=== PATIENT | male | born 1955 | race Caucasian/White ===

== ENCOUNTER 2021-07-09 13:48 | Outpatient (CLI) | payer MEDICARE, SELFPAY ==
--- NOTE | 2021-07-09 | CT_ITS ---
WS: [id number] CTA THORACIC TECHNIQUE: Contrast enhanced CTA of the thoracic aorta with coronal and sagittal reformatted images a nd maximum intensity projection (MIP) images. CLINICAL INFORMATION: AORTIC STENOSIS COMPARISON: None. DLP: 1167.[address] scans at [facility] use at least one of these dose optimization techniques: automated e xposure control; mA and/or kV adjustment per patient size (includes targeted exams where dose is matc hed to clinical indication); or iterative reconstruction. FINDINGS:Heterogeneously enhancing mass likely arising from the adrenal gland measuring 3.9 x 3.2 x 4 .0 CM. Additional lobulated mesenteric soft tissue nodules adjacent to this mass superior to the left kidney in a subdiaphragmatic location measuring 1.4 x 1.9 x 4.1 cm. Findings are nonspecific but arsenio picious for metastatic disease. Normal caliber thoracic aorta. Ascending thoracic aorta measures 3.1 cm in maximum dimension. Normal descending thoracic aorta. Normal aortic arch. Upper abdominal aorta appears normal. No mediastinal or hilar lymphadenopathy. No axillary lymphadenopathy. Moderate to advanced chronic em physematous changes. No acute pulmonary infiltrates. No focal pneumonia or pleural fluid. A few calci fied granulomas. Small noncalcified nodule right upper lobe measuring 6 mm. Subpleural nodule right l ower lobe measuring 6 mm. 3 mm subpleural nodule left lower lobe. Normal right adrenal gland. CT/CT angio chest [id number] IMPRESSION: 1. Normal caliber thoracic aorta. 2. Moderate to advanced chronic emphysematous changes. No acute pulmonary infi ltrates. 3. Noncalcified nodule right upper lobe measuring 6 mm. 4. Heterogeneously enhancing soft tissue mass in the area of the left adrenal gland measuring 3.9 x 3.2 x 4.0 CM. Additional adjacent mesenteric nodularity s uperior to the left kidney measures 1.9 x 1.4 x 4.1 CM. Findings are nonspecifi c but suspicious for metastatic disease. Recommend further evaluation with CT a bdomen pelvis.
[2021-07-09] MEDS: iohexol 350 mg/mL 100 mL Btl IV (15:02)
== END 2021-07-09 13:49 | disposition home or self-care (01) ==
PROVIDERS: PCP Nurse Practitioner Family; Visit Provider Internal Medicine
DX: I35.0 Nonrheumatic aortic (valve) stenosis (principal); R91.1 Solitary pulmonary nodule
CPT/HCPCS: 71275; Q9967

== ENCOUNTER 2021-07-31 15:08 | Outpatient (CLI) | payer MEDICARE, SELFPAY ==
--- NOTE | 2021-07-31 15:12 | CT_ITS ---
WS: [id number] CT ABDOMEN PELVIS TECHNIQUE: Noncontrast and Contrast-enhanced CT of the abdomen and pelvis with coronal and sagittal r eformatted images with adrenal washout protocol. 15 minute delayed images. CLINICAL INFORMATION: ADRENAL ABNORMALITY COMPARISON: CTA chest July 09, 2021 DLP: 1596.[address] scans at [facility] use at least one of these dose optimization techniques: automated e xposure control; mA and/or kV adjustment per patient size (includes targeted exams where dose is matc hed to clinical indication); or iterative reconstruction. FINDINGS: Again seen is the left adrenal mass measuring approximately 3.9 x 3.2 x 4.0 CM. Hounsfield units on the noncontrast imaging measures 43 with significant enhancement on the arterial imaging measuring 13 2 and 62 on the delayed 15 minute images. Absolute washout of 78.2% and relative washout of 63.0% can be seen with adenomas however hypervascul ar enhancement on the arterial imaging with precontrast attenuation of 43 Hounsfield units can also b e seen with pheochromocytomas and hypervascular metastasis. Recommend correlation with urinary and pl asma fractionated metanephrines and catecholamines. Pheochromocytomas and lipid poor adenomas can hav e overlapping washout characteristics. PET/CT may also be helpful in further evaluation. 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 Th is likely represents small residual splenules or splenic tissue. Diffuse fatty infiltration of the liver. Normal portal vein and splenic vein. Normal gallbladder. Rig ht adrenal gland is normal. Normal renal parenchymal enhancement. No hydronephrosis. Lung bases are w ell aerated. Small noncalcified subpleural nodule in the right lower lobe measuring 5.3 mm appears un changed since July 09, 2021. Fatty atrophy of the pancreas. Normal caliber abdominal aorta. María c and SMA are patent. Mild aortic calcification. Enlarged prostate measuring 4.6 cm. Recommend correlation PSA. Evidence of mild bladder outlet obstru ction. Left inguinal hernia containing a nonobstructed loop of small bowel. Evidence of prior postope rative changes involving the cecum. Normal urinary excretion on the delayed images. No abdominal or pelvic lymphadenopathy. Grade 1 anter olisthesis L5 on S1 with bilateral spondylolysis measuring 8.[address]/CT abdomen pelvis w con* [id number] IMPRESSION: 1. Imaging and washout characteristics of the left adrenal lesion are nonspeci fic for adenoma and overlap with pheochromocytoma and hypervascular metastasis. Recommend correlation with urinary metanephrines. PET/CT may be useful in furt her evaluation considering the size 2. Previously described nodularity in left upper quadrant likely related to pr ior splenectomy. This likely represents small residual splenic tissue or splenu les. 3. No adenopathy in the abdomen or pelvis. 4. Enlarged prostate with evidence of mild bladder outlet obstruction. Recomme nd correlation PSA. Prostate measures 4.6 cm. 5. Nonobstructing left inguinal hernia containing a loop of decompressed small bowel. 6. Grade 1 anterolisthesis L5 on S1 with chronic spondylolysis.
[2021-07-31] MEDS: iohexol 300 mg/mL 100 mL Btl IV (16:19)
== END 2021-07-31 15:09 | disposition home or self-care (01) ==
PROVIDERS: PCP Nurse Practitioner Family; Visit Provider Internal Medicine
DX: E27.9 Disorder of adrenal gland, unspecified (principal); K40.90 Unilateral inguinal hernia, without obstruction or gangrene, not specified as recurrent; N40.0 Benign prostatic hyperplasia without lower urinary tract symptoms
CPT/HCPCS: 74177